=== PATIENT | male | born 1990 | race African-American/Black ===

== ENCOUNTER 2021-01-13 20:00 | Emergency (ER) | payer OTHER ==
[~2021-01-13] VITALS: Ht 182.9 cm; Wt 70.9 kg
--- OUTSIDE RECORDS SUMMARY | 2021-01-13 20:05 | CCD ---
Author Author [facility] Organization [facility] Address Unknown Phone Unavailable Support Name Relationship Address Phone JIM DAVID Next Of Kin [id number] [place] [address] [facility] [address] Next Of Kin [address] [place] [address] Unavailable JIM PENNINGTON Next Of Kin [address] [id number] Re-disclosure Warning The records that you are about to access may contain information from federally-assisted alcohol or drug abuse programs. If such information is present, then the following federally mandated warning applies: This information has been disclosed to you from records protected by federal confidentiality rules (42 CFR part 2). The federal rules prohibit you from making any further disclosure of this information unless further disclosure is expressly permitted by the written consent of the person to whom it pertains or as otherwise permitted by 42 CFR part 2. A general authorization for the release of medical or other information is NOT sufficient for this purpose. The Federal rules restrict any use of the information to criminally investigate or prosecute any alcohol or drug abuse patient.The records that you are about to access may contain highly sensitive health information, the redisclosure of which is protected by Article 27-F of the [facility] Public Health law. If you continue you may have access to information: Regarding HIV / AIDS; Provided by facilities licensed or operated by the [facility] Office of Mental Health; or Provided by the [facility] Office for People With Developmental Disabilities. If such information is present, then the following [facility] mandated warning applies: This information has been disclosed to you from confidential records which are protected by state law. State law prohibits you from making any further disclosure of this information without the specific written consent of the person to whom it pertains, or as otherwise permitted by law. Any unauthorized further disclosure in violation of state law may result in a fine or group home sentence or both. A general authorization for the release of medical or other information is NOT sufficient authorization for further disc losure. Medications No Information Insurance Providers Payer name Policy type / Coverage type Policy ID Covered alliance party ID Covered alliance party's relationship to menendez Policy Menendez Plan Information [employer] [id number] SP [id number] [place] [employer] [place] -[place]/P [id number] 18 [id number] [employer] [place] [employer]P [id number] 18 [id number] Problems, Conditions, and Diagnoses No Information Surgeries/Procedures No Information Results No Information Social History No Information
[2021-01-13] MEDS ORDERED: VENL75TA2 PO (20:18)
[2021-01-13] MEDS ORDERED: LAMO200T3 PO (20:18)
[2021-01-13 20:42] LABS: BASO % 0.5 % (0.0-1.0); EOS % 0.5 % (0.0-3.0); HEMATOCRIT 40.7 % (42.0-52.0); HEMOGLOBIN 12.7 g/dl (13.5-17.5); LYMPH # 1.7 10^3/uL (1.5-5.0); LYMPH % 25.9 % (24.0-44.0); MEAN CORPUSCULAR HEMOGLOBIN 21.9 pg (27.0-33.0); MEAN CORPUSCULAR HGB CONC 31.2 g/dl (32.0-36.5); MEAN CORPUSCULAR VOLUME 70.1 fl (80.0-96.0); MONO # 0.4 10^3/uL (0.0-0.8); MONO % 5.6 % (2.0-8.0); NEUTROPHILS # 4.5 10^3/uL (1.5-8.5); NEUTROPHILS % 67.2 % (36.0-66.0); PLATELET COUNT, AUTOMATED 292 10^3/uL (150-450); RED BLOOD COUNT 5.81 10^6/uL (4.30-6.10); WHITE BLOOD COUNT 6.7 10^3/uL (4.0-10.0)
[2021-01-13] MEDS ORDERED: MORPHINE 2 MG/ML 1ML VIAL (J2270) IV ONE (20:45)
[2021-01-13] MEDS ORDERED: ONDANSETRON 4MG/2ML VIAL IV ONE (20:45)
[2021-01-13] MEDS ORDERED: NITROGLYCERIN 0.4 MG SUBL TABLET SL PRN (20:45)
[2021-01-13] MEDS ORDERED: ISOVUE-370 76% 100ML VIAL As Ordered ONE (20:54)
[2021-01-13 21:13] LABS: ALBUMIN 4.2 GM/DL (3.2-5.2); ALT/SGPT 25 U/L (12-78); BILIRUBIN,DIRECT < 0.1 MG/DL (0.0-0.2); BILIRUBIN,TOTAL 0.2 MG/DL (0.2-1.0); CK-MB VALUE MASS < 1.0 NG/ML (<3.6); CPK CREATINE PHOSPHOKINASE 110 U/L (39-308); MB/CK RELATIVE INDEX 0.91 (< OR =4); NT-PRO BNP 45 PG/ML (<125); TOTAL PROTEIN 7.5 GM/DL (6.4-8.2); TROPONIN I < 0.02 NG/ML (< 0.10)
--- NOTE | 2021-01-13 21:45 | REPVR ---
PROCEDURE INFORMATION: Exam: XR Chest Exam date and time: 01/13/2021 8:32 PM Age: 30 years old Clinical indication: Pain; Other: Unspecified; Additional info: Chest pain TECHNIQUE: Imaging protocol: XR of the chest. Views: 1 view. COMPARISON: No relevant prior studies available. FINDINGS: Lungs: Unremarkable. No consolidation. Pleural spaces: Unremarkable. No pleural effusion. No pneumothorax. Heart/Mediastinum: Unremarkable. No cardiomegaly. Bones/joints: Unremarkable. IMPRESSION: Negative chest. Electronically signed by: Dariusz Skinner On 01/13/2021 21:44:46 PM
--- NOTE | 2021-01-13 21:50 | REPVR ---
PROCEDURE INFORMATION: Exam: CTA Chest With Contrast Exam date and time: 01/13/2021 9:10 PM Age: 30 years old Clinical indication: Shortness of breath; Additional info: Rule out pe TECHNIQUE: Imaging protocol: Computed tomographic angiography of the chest with contrast. 3D rendering (Not supervised by radiologist): MIP and/or 3D reconstructed images were created by the technologist. Radiation optimization: All CT scans at this facility use at least one of these dose optimization techniques: automated exposure control; mA and/or kV adjustment per patient size (includes targeted exams where dose is matched to clinical indication); or iterative reconstruction. Contrast material: ISOVUE 370; Contrast volume: 100 ml; Contrast route: INTRAVENOUS (IV); COMPARISON: CR Chest, 1 view 01/13/2021 8:23 PM FINDINGS: Pulmonary arteries: The main pulmonary artery measures 28 mm. No pulmonary embolism is identified. Aorta: The ascending thoracic aorta measures 25 mm. Lungs: Unremarkable. No consolidation. No masses. Pleural spaces: Unremarkable. No pneumothorax. No pleural effusion. Heart: Unremarkable. No cardiomegaly. No pericardial effusion. Lymph nodes: Unremarkable. No enlarged lymph nodes. Liver: Rounded hyperenhancing focus in the liver measuring 10 mm which is nonspecific. Bones/joints: Unremarkable. No acute fracture. Soft tissues: Unremarkable. IMPRESSION: 1. Rounded hyperenhancing focus in the liver measuring 10 mm which is nonspecific. 2. Otherwise negative CTA chest. No pulmonary embolism is identified. Electronically signed by: Dariusz Skinner On 01/13/2021 21:49:36 PM
--- OUTSIDE RECORDS SUMMARY | 2021-01-13 22:26 | CCD ---
Author Author [facility] Organization [facility] Address Unknown Phone Unavailable Support Name Relationship Address Phone UE Next Of Kin Unknown Unavailable JIM DAVID Next Of Kin [address] [place] [address] [facility] [address] Next Of Kin [address] [place] [address] Unavailable JIM PENNINGTON Next Of Kin [address] [place] [id number] Re-disclosure Warning The records that you are [...] is protected by Article 27-F of the [facility] Public Health law. If you continue you may have access to information: Regarding HIV / AIDS; Provided by facilities licensed or operated by the [facility] Office of Mental Health; or Provided by the [facility] Office for People With Developmental Disabilities. If such information is present, then the following [facility] mandated warning applies: This information has [...] law may result in a fine or mcc sentence or both. A general authorization for the release of medical or other information is NOT sufficient authorization for further disc losure. Medications No Information Insurance Providers Payer name Policy type / Coverage type Policy ID Covered constitution party ID Covered constitution party's relationship to menendez Policy Menendez Plan Information [employer] [facility] [id number] SP [id number] [employer] [id number] SP [id number] N [employer] [place] -O/P [id number] 18 [id number] N [employer] [place] -[employer]/P [id number] 18 [id number] Problems, Conditions, and Diagnoses No Information Surgeries/Procedures No Information Results No Information Social History No Information
[2021-01-14 01:21] LABS: CK-MB VALUE MASS < 1.0 NG/ML (<3.6); CPK CREATINE PHOSPHOKINASE 100 U/L (39-308); TROPONIN I < 0.02 NG/ML (< 0.10)
[2021-01-14 01:30] VITALS: BP 121/76
--- NOTE | 2021-01-14 08:31 | ECGEPIP ---
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
--- NOTE | 2021-01-14 17:12 | ED PDOC ---
Post-Departure Follow-Up certified letter sent regarding radiology report Estrella Abreu MD Jan 14, 2021 17:12
--- NOTE | 2021-01-14 18:42 | ECGEPIP ---
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
== END 2021-01-14 01:45 | disposition home or self-care (01) ==
LOC: M ED 20:00
DX: R07.89 Other chest pain (principal); I45.19 Other right bundle-branch block; R93.2 Abnormal findings on diagnostic imaging of liver and biliary tract; R06.02 Shortness of breath; F90.9 Attention-deficit hyperactivity disorder, unspecified type; F41.9 Anxiety disorder, unspecified; F19.10 Other psychoactive substance abuse, uncomplicated
CPT/HCPCS: 71045; 71275; 80047; 80076; 82550; 82553; 83880; 84484; 85025; 93005; 99285; J2270; J2405; Q9967

== ENCOUNTER → 2024-01-27 | Outpatient (REF) ==
[~2024-01-27] MED LIST: LAMO200T3 PO; VENL75TA2 PO
== END ==
LOC: M PLAIMG 13:02
PROVIDERS: ATTEND Internal Medicine
DX: R06.02 Shortness of breath (principal)